=== PATIENT | female | born 1980 | race Two or more races ===

== ENCOUNTER 2017-09-13 11:38 | Inpatient (IN) | payer OTHER ==
[~2017-09-13] VITALS: Ht 157.5 cm; Wt 55.3 kg
[2017-09-14] MEDS ORDERED: OBTREX DHA PRE1 EACH (12:40)
[2017-09-14] MEDS ORDERED: ZANTAC150 M3 (12:41)
[2017-09-14] MEDS ORDERED: ZOFRAN4 MG/5 ML (12:41)
== END 2017-09-17 09:11 | disposition home or self-care (01) | DRG 781 ==
LOC: OB/GYN 11:38
PROC: 4A1HXCZ Monitoring of Products of Conception, Cardiac Rate, External Approach (ICD-10-PCS; principal; 2017-09-13)
DX: O21.1 Hyperemesis gravidarum with metabolic disturbance (principal); Z3A.22 22 weeks gestation of pregnancy

== ENCOUNTER 2018-02-25 15:57 | Outpatient (CLI) | payer OTHER ==
[~2018-02-25 15:57] MED LIST: OBTREX DHA PRE1 EACH; ZANTAC150 M3; ZOFRAN4 MG/5 ML
[2018-02-25] MEDS ORDERED: TUMS200 MG PO (17:59)
== END 2018-02-26 10:35 | disposition home or self-care (01) ==
LOC: OBS/DEL 15:57
DX: O60.03 Preterm labor without delivery, third trimester (principal); Z34.02 Encounter for supervision of normal first pregnancy, second trimester

== ENCOUNTER 2018-03-14 11:40 | Inpatient (IN) | payer OTHER ==
[~2018-03-14] VITALS: Ht 157.5 cm; Wt 67.1 kg
[~2018-03-14 11:40] MED LIST changes: +TUMS200 MG PO
[2018-04-12] MEDS ORDERED: IBUPROFEN800 MG PO (08:34)
[2018-04-12] MEDS ORDERED: FLUOCINONIDE15 GM TOP (08:34)
[2018-04-12] MEDS ORDERED: PREPLUS CA-FE1 EACH PO (08:34)
== END 2018-04-12 12:40 | DRG 807 ==
LOC: LDR 04-05 14:15 → SURG-SUITE 04-09 06:34
PROC: 10E0XZZ Delivery of Products of Conception, External Approach (ICD-10-PCS; principal; 2018-04-10)
PROC: 0KQM0ZZ Repair Perineum Muscle, Open Approach (ICD-10-PCS; 2018-04-10)
PROC: 3E033VJ Introduction of Other Hormone into Peripheral Vein, Percutaneous Approach (ICD-10-PCS; 2018-04-10)
PROC: 4A1HXCZ Monitoring of Products of Conception, Cardiac Rate, External Approach (ICD-10-PCS; 2018-04-10)
DX: O70.1 Second degree perineal laceration during delivery (principal); Z37.0 Single live birth; Z3A.40 40 weeks gestation of pregnancy